=== PATIENT | male | born 1995 | race American Indian/Alaskan Native ===

== ENCOUNTER 2021-08-23 16:21 | Emergency (ER) | payer OTHER ==
[2021-08-23 17:40] VITALS: BP 132/73
[2021-08-23] MEDS ORDERED: IBUPROFEN 600 MG TAB PO ONE (20:29)
[2021-08-23] MEDS ORDERED: ACETAMINOPHEN 500 MG TAB PO ONE (20:29)
--- NOTE | 2021-08-23 20:49 | XRay Report ---
Right knee 3 views INDICATION: Right knee pain following injury IMPRESSION: Small right knee effusion. The right patella appears slightly elevated and the patellar t endon appears thickened suspicious for underlying injury. Several small osseous fragments are identif ied along the patellar tendon which could represent tiny avulsion fragments or evidence of prior inju ry/heterotopic ossification. The femur and tibia appear intact. Signer Name: Juan Christopher MD Signed: 08/23/2021 8:45 PM Workstation Name: [id number]
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
== END 2021-08-23 21:51 | disposition home or self-care (01) ==
LOC: ED 16:21
DX: S83.91XA Sprain of unspecified site of right knee, initial encounter (principal); M62.830 Muscle spasm of back; V89.2XXA Person injured in unspecified motor-vehicle accident, traffic, initial encounter; Y93.89 Activity, other specified; Y92.89 Other specified places as the place of occurrence of the external cause; Y99.8 Other external cause status
CPT/HCPCS: 99283